=== PATIENT | male | born 1985 | race Caucasian/White ===

== ENCOUNTER 2025-03-11 14:03 | Emergency (ER) | payer OTHER, SELFPAY ==
[2025-03-11 14:29] VITALS: BP 146/89; PULSE 90; RESP 18; TEMP 37.1; O2SAT 97; BMI 30.1
--- NOTE | 2025-03-11 15:28 | CRLHL7_ITS ---
For Patients: As a result of the Cures Act, medical imaging exams and procedure reports are released immediately into your electronic medical record. You may view this report before your referring provider. If you have questions, please contact your health care provider. Indication: Crush injury to left hand. Technique: Three views of the left hand. Comparison: None. Findings: Normal bony alignment. No acute fracture is seen. The joint spaces are normal. No soft tissue abnormality. Impression: No acute osseous abnormality. Dictated by Quentin Espinoza MD @ 03/11/2025 4:42:05 PM (Electronically Signed)
[2025-03-11 16:00] VITALS: PULSE 78
--- NOTE | 2025-03-11 16:18 | ED_ITS ---
HPI - General Adult General Date Seen: 03/11/25 Chief complaint: Extremity Pain/Injury, Upper Stated complaint: injured hand at work Time Seen by Provider: 03/11/25 15:58 History of Present Illness HPI narrative: Patient is a 39-year-old generally healthy right-handed gentleman who presents for evaluation of an injury to his left hand while at work. He says he is sure if it was crushed sort of on the thumb more on the hand but he had sudden onset of swelling in the thenar eminence and now has pain in that area when he moves his thumb. He is not anticoagulated. No other injuries or complaints. Related Data Home Medications ?Medication ?Instructions ?Recorded ?Confirmed No Known Home Medications 03/11/2503/01 Allergies Allergy/AdvReac Type Severity Reaction Status Date / Time No Known Drug Allergies Allergy Verified 03/11/25 14:32 PFSH PFS Social History Smoking Status: Never smoker Do you use any of these nicotine containing products: None How often do you have a drink containing alcohol: never AUDIT-C Alcohol total score: 0 Non-prescribed substance use: denies use Exam Narrative: Exam Narrative: Vital signs reviewed In general, alert, nontoxic male. Extremities: Examination of the left hand shows significant swelling over the thenar eminence, no bruising or erythema. There is some tenderness here, the thumb is fairly nontender, he is able to partially oppose abduct the thumb although he has pain in the thenar eminence when he moves it. Distal CMS intact. No wrist or snuffbox tenderness. Skin: Warm dry and intact. Const: Vital Signs, click to edit/add: Vital Signs - 24 hr 03/11/25 14:29 Temperature 98.7 F Pulse Rate [Right Pulse Oximeter] 90 Respiratory Rate 18 Blood Pressure [Ri ght Upper Arm] 146/89 H Pulse Oximetry 97 Course Course ED Course: X-rays of the left hand by my review show no obvious fracture or deformity. Awaiting radiology review. Radiology reads his x-rays is negative as well. I am going to give him a thumb spica for comfort, reviewed that this hematoma will probably take a couple of weeks to really resolved but he should not have ongoing significant pain in the hand as it does so. If by a week or so he still having significant pain he should be seen again for repeat x-rays. Ice, Tylenol and or ibuprofen as needed. Work note given for limited use left hand next week. Vital Signs Vital signs: Initial Vital Signs Temperature 98.7 F 03/11/25 14:29 Temperature Source Temporal Artery Scan 03/11/25 14:29 Pulse Rate 90 03/11/25 14:29 Respiratory Rate 18 03/11/25 14:29 Blood Pressure 146/89 H 03/11/25 14:29 Blood Pressure Mean 108 H 03/11/25 14:29 Blood Pressure Position Sitting 03/11/25 14:29 Pulse Oximetry 97 03/11/25 14:29 Vital Signs Temperature 98.7 F 03/11/25 14:29 Pulse Rate 90 03/11/25 14:29 Respiratory Rate 18 03/11/25 14:29 Blood Pressure 146/89 H 03/11/25 14:29 Pulse Oximetry 97 03/11/25 14:29 Temperature 98.7 F 03/11/25 14:29 Pulse Rate 90 03/11/25 14:29 Respiratory Rate 18 03/11/25 14:29 Blood Pressure 146/89 H 03/11/25 14:29 Pulse Oximetry 97 03/11/25 14:29 Medical Decision Making Imaging Data Hand x-ray: Attestation: I have reviewed the pertinent imaging results. Radiologist's impression: Patient: Abel Orellana MR#: [id number] : 1985 Acct:[id number] Loc: ED Service Date: 03/11/[address]: Ordering Physician: Delicia Melgar M.D. Date of Service: 03/11/25 Procedure(s): XR hand LT min 3V Accession Number(s): [id number] cc: Delicia Melgar M.D.; Provider,Not a Local~ For Patients: As a result of the Century Cures Act, medical imaging exams and procedure reports are released immediately into your electronic medical record. You may view this report before your referring provider. If you have questions, please contact your health care provider. Indication: Crush injury to left hand. Technique: Three views of the left hand. Comparison: None. Findings: Normal bony alignment. No acute fracture is seen. The joint spaces are normal. No soft tissue abnormality. Impression: No acute osseous abnormality. Dictated by Quentin Espinoza MD @ 03/11/2025 4:42:05 PM Discharge Plan Discharge Clinical Impression: Hematoma of left hand Patient Disposition: Home, Self-Care Condition: Stable Instructions: Hematoma (ED) Additional Instructions: You can use the thumb spica splint for comfort over the next few days up to week or so. I expect it will take a couple of weeks for this swelling to significantly improve. However, your hand should feel gradually better over the next week. If you have any significant lingering pain as the swelling improves, you should be seen again either by your primary clinic or by Orthopedics, for re-evaluation and consideration of repeat x-rays. Today's x-rays do not show any kind of bony injury. Prescriptions: No Action No Known Home Medications Follow Up/Referrals: Provider,Not a Local [Primary Care Provider, Family Practice] Stand Alone Forms: [facility] Info Instructions
== END 2025-03-11 16:59 | disposition home or self-care (01) ==
PROVIDERS: Emergency Provider Emergency Medicine
DX: S60.221A Contusion of right hand, initial encounter (principal); W23.0XXA Caught, crushed, jammed, or pinched between moving objects, initial encounter
CPT/HCPCS: 29130; 73130; 99282; 99283